=== PATIENT | male | born 1940 | race Two or more races ===

== ENCOUNTER → 2024-10-03 | Day surgery (SDC) | payer MEDICARE, OTHER ==
[~2024-10-03] VITALS: Ht 172.7 cm; Wt 75.7 kg
[~2024-10-03] MED LIST: ACETYLCHOLINE CHLORIDE INTRAOCULAR SOLUTION 1:100 ELECTROLYTE DILUENT IO ONE; ASPI-1406 PO; BALANCED SALT IRRIG SOLN COMB1 500ML OP NR; BRIM10DR2 BOTHEYE; CLON0.1T PO; CYCLOPENTOLATE HCL 1% OPHTH DROPS 2ML LEFTEYE ONE; FENTANYL CITRATE/PF 50MCG/ML 2ML VIAL ONE; HYALURONATE SODIUM 10MG/ML 0.55ML SYRINGE IO ONE; HYDROMORPHONE HCL/PF 1MG/ML INJ IV PRN; LABETALOL 5MG/ML 4ML INJ IV PRN; LATA2.5D14 BOTHEYE; MEPERIDINE HCL/PF 25MG/ML CPJ IV PRN; METH50TA5 PO; MIDAZOLAM HCL 2 MG/2 ML VIAL ONE; ONDANSETRON HCL 4MG/2ML INJ IV PRN; PHENYLEPHRINE HCL 10% OPHTH DROPS 5ML LEFTEYE ONE; PRED5DRO22 BOTHEYE; SITA1TAB6 PO; SODIUM CHLORIDE 0.9% 1,000 ML IV SCH; TROPICAMIDE 1% OPHTH DROPS 15ML LEFTEYE ONE
== END | disposition home or self-care (01) ==
LOC: OR 09:14
PROVIDERS: ATTEND Ophthalmology
DX: E11.36 Type 2 diabetes mellitus with diabetic cataract (principal); H25.89 Other age-related cataract; I10 Essential (primary) hypertension; E78.5 Hyperlipidemia, unspecified; Z79.82 Long term (current) use of aspirin; Z79.84 Long term (current) use of oral hypoglycemic drugs; Z79.899 Other long term (current) drug therapy; Z98.890 Other specified postprocedural states
CPT/HCPCS: 66984; 82962; V2632; J3010; J2003; J2250; J3490